=== PATIENT | male | born 1935 | race Caucasian/White ===

== ENCOUNTER 2016-12-31 09:44 | Outpatient (CLI) | payer MEDICARE ==
--- NOTE | 2016-12-31 18:58 | CT ---
CT OF THE BRAIN WITHOUT CONTRAST 12/31/[address] was performed. No prior scans were available for comparison. Diffuse atrophy is present that is moderate in degree but not unexpected for age. The ventricles are normal in size with no shift. No obvious stroke, mass, bleeding or edema, was see n. In the posterior fossa, the subarachnoid space between the right cerebellar hemisphere and the ri ght petrous ridge is a little more prominent which could indicate a little increased atrophy on this side. I see no focal pathology within the cerebellum itself. The mastoid air cells and visible para nasal sinuses were clear. There might be a small polyp in the posterior left maxillary sinus. IMPRESSION: Diffuse atrophy but no acute intracranial finding. POS: HOME
== END 2016-12-31 09:45 | disposition home or self-care (01) ==
LOC: BURCT 09:44
PROVIDERS: ATTEND Family Medicine
DX: F03.90 Unspecified dementia, unspecified severity, without behavioral disturbance, psychotic disturbance, mood disturbance, and anxiety (principal)
CPT/HCPCS: 70450